=== PATIENT | male | born 1965 | race Caucasian/White ===

== ENCOUNTER 2019-02-22 10:05 | Outpatient (CLI) | payer MEDICAID, SELFPAY ==
[2019-02-22 10:51] LABS: HGB 8.8 g/dL (13.5-17.5); Mean Corp. HGB Concentration 29.3 g/dL (32.0-36.0); Mean Corpuscular Hemoglobin 25.9 pg (27.0-33.0); Mean Corpuscular Volume 88.2 fL (80-95); Mean Platelet Volume 9.9 fL (8.0-11.0); Platelet Count 487 x1000/uL (130-400); RBC Distribution Width 16.3 % (11.8-14.1); White Blood Cell Count 12.52 k/cumm (4.4-10.8)
[2019-02-22 11:35] LABS: Absolute Eosinophil Count 0.38 k/cumm (0.0-0.7); Absolute Lymphocyte Count 2.13 k/cumm (1.2-3.4); Absolute Monocyte Count 0.88 k/cumm (0.11-0.7); Absolute Neutrophil Count 9.14 k/cumm (1.2-6.7); Diff Comment Manual Differential; Hypochromasia 2+; Polychromasia Present
[2019-02-22 11:36] LABS: Anion Gap 14.9 mmol/L (3-11); BUN 44 mg/dL (7-18); CO2 24.1 mmol/L (21.0-32.0); Calcium 7.9 mg/dL (8.5-10.1); Chloride 99 mmol/L (98-107); Estimated GFR 8.59 (mL/min/1.73m2); Glucose 167 mg/dL (74-106); Potassium 4.7 mmol/L (3.5-5.1); Sodium 138 mmol/L (136-145)
[2019-02-22 11:40] LABS: CREATININE 6.73 mg/dL (0.70-1.30)
== END 2019-02-22 10:25 ==
PROVIDERS: PCP Family Medicine; Visit Provider Family Medicine
DX: I42.9 Cardiomyopathy, unspecified (principal); K85.10 Biliary acute pancreatitis without necrosis or infection; E11.65 Type 2 diabetes mellitus with hyperglycemia
CPT/HCPCS: 36415; 80048; 85025

== ENCOUNTER 2019-03-14 15:02 | Emergency (ER) | payer MEDICAID, SELFPAY ==
[2019-03-14] VITALS (29 sets, daily range): BP systolic 140–159; BP diastolic 57–93; PULSE 86–101; RESP 13–35; TEMP 36.8; O2SAT 94–100
--- NOTE | 2019-03-14 15:13 | W.ED.GENAD ---
Discharge Plan Disposition Patient Disposition: [facility] Condition: Stable Discharge Details Chief Complaint: GenMedical Clinical Impression: HCAP (healthcare-associated pneumonia) Primary Care Provider: Bruno Hyatt ED Provider: Bijan Seo Home Meds and New Rx's Prescriptions: No Action pravastatin 40 mg Tablet 40 mg PO QHS RF: 0 lisinopril 20 mg Tablet 20 mg PO QHS RF: 0 glipizide 10 mg Tablet 10 mg PO BID RF: 0 amlodipine [Norvasc] 5 mg Tablet 5 mg PO DAILY RF: 0 clonidine HCl [Catapres] 0.2 mg Tablet 0.2 mg PO QHS RF: 0 methocarbamol [Robaxin-750] 750 mg Tablet 750 mg PO QID RF: 0 Novolog U-100 Insulin aspart 100 unit/mL Solution 20 unit SUBCUT TID RF: 0 pantoprazole [Protonix] 40 mg Tablet,Delayed Release (Dr/Ec) 40 mg PO DAILY RF: 0 pregabalin [Lyrica] 50 mg Capsule 200 mg PO BID RF: 0 Levemir U-100 Insulin 100 unit/mL Solution 9 unit SUBCUT QHS RF: 0 Advair HFA 45-21 mcg/actuation Hfa Aerosol Inhaler 2 puff INHALATION BID RF: 0 Januvia 100 mg Tablet 100 mg PO DAILY RF: 0 Eliquis 2.5 mg Tablet 2.5 mg PO BID RF: 0 Medical Decision Making 53 yo male with hx of esrd on dialysis normally T//Thu but was there today due to the holidays, dvt, lbbb, dm2, htn, hld, asthma, who [place] [facility] [place] and his hospital course was complicated by a PEA arrest and found to have global cardiac hypokinesis with EF of 59% [place] [facility] [place] and had a biliary drain placed and had an ercp done as well, comes in from dialysis after he had a 1 hour session (supposed to be 4 hours) and had several episodes of loc lasting several seconds per dialysis nurse. Pt arrives hd stable though o2 saturaiton is 88% on room air and denies chronic use of o2. He has felt weak and short of breath for 2 weeks, denies chest pressure, vomit, abdominal pain. He Has diminished breath sounds at the bases and wheezing at the apices, soft abdomen without tenderness. Multiple potential etiologies will obtain lab work, blood cultures an cxr to evaluate for etiologies such as chf, pna, influenza, anemia and acs and monitor and also treat for possible asthma/copd exacerbation with steroids and neb pt remains stable, labs show wbc of 16 and xray concerning for pna, will cover for hcap. [place] [facility] [place] [facility] due to him not feeling great about the [place] [facility] [place] [facility] Spoke with Dr Granados from [facility] medicine who accepts for admission and patient is in agreement with this plan Differential Diagnosis Differential Diagnosis: acs, chf, copd, pneumonia, influenza Medical Records Medical records reviewed: Yes I reviewed the patient's medical records. Imaging Data Radiologic Study: Attestation: I personally reviewed and interpreted this imaging study as follows: Imaging: X-Ray Radiologist's impression: IMPRESSION: Opacities in the left base may represent atelectasis or pneumonia. Lab Data Lab results reviewed: Yes I reviewed the patient's lab results. ECG Data Attestation: I personally reviewed and interpreted this ECG (s) as follows: Prior ECG tracings: not available for review Interpretation: sinus rhythm, rate o 98, pr 144, lbbb HPI General Mode of arrival: EMS. Date/Time Provider Initiated Documentation: 03/14/19 15:05. Limitations to Documentation: no limitations. Information obtained by: patient. History of Present Illness 53 year old M presents to the emergency department with the chief complaint of shortness of breath, described as moderate, Patient started experiencing this week(s) (2) and it has been constant. No relieving factors improve symptom(s), No exacerbating factors reported . Patient did receive the following treatments prior to arrival, none Related Data Home Medications Medication Instructions Recorded Confirmed amlodipine [Norvasc] 5 mg PO DAILY 03/14/19 03/14/19 apixaban [Eliquis] 2.5 mg PO BID 03/14/19 03/14/19 clonidine HCl [Catapres] 0.2 mg PO QHS 03/14/19 03/14/19 fluticasone propion-salmeterol 2 puff INHALATION BID 03/14/19 03/14/19 [Advair HFA] glipizide 10 mg PO BID 03/14/19 03/14/19 insulin aspart U-100 [Novolog 20 unit SUBCUT TID 03/14/19 03/14/19 U-100 Insulin aspart] insulin detemir U-100 [Levemir 9 unit SUBCUT QHS 03/14/19 03/14/19 U-100 Insulin] lisinopril 20 mg PO QHS 03/14/19 03/14/19 methocarbamol [Robaxin-750] 750 mg PO QID 03/14/19 03/14/19 pantoprazole [Protonix] 40 mg PO DAILY 03/14/19 03/14/19 pravastatin 40 mg PO QHS 03/14/19 03/14/19 pregabalin [Lyrica] 200 mg PO BID 03/14/19 03/14/19 sitagliptin [Januvia] 100 mg PO DAILY 03/14/19 03/14/19 Allergies Allergy/AdvReac Type Severity Reaction Status Date / Time codeine Allergy Unverified 03/14/19 15:10 Penicillins Allergy Unverified 03/14/19 15:10 General Stated Complaint: GenMedical GILLIAN: 2 Review of Systems All systems reviewed & are unremarkable except as noted in HPI and below Constitutional Constitutional: Denies fever(s) Cardiovascular Cardiovascular: Denies chest pain and Denies dyspnea Respiratory Respiratory: Denies dyspnea Gastrointestinal Gastrointestinal: Denies abdominal pain, Denies nausea and Denies vomiting Musculoskeletal Musculoskeletal: Denies joint swelling Exam Const General: no acute distress Orientation: alert HENMT Head: normal to inspection Ears: external ears normal General nose exam: external nose normal Mouth: moist mucous membranes Eyes General: appearance normal, both eyes and all related structures Neck Neck: normal visual inspection Resp Effort & Inspection: other (diminished breath souds at the bases) Cardio Rate: regular rate Skin General skin exam: no rashes or lesions noted Neuro General: alert and oriented x3 Extrem General: normal to inspection Psych Mental Status: mental status grossly normal Course Vital Signs Vital signs: Vital Signs Temperature 36.8 C 03/14/19 15:02 Pulse 100 H 03/14/19 15:02 Respiratory Rate 35 H 03/14/19 15:02 Blood Pressure 157/85 H 03/14/19 15:02 Pulse Oximetry 94 L 03/14/19 15:02 Temperature 36.8 C 03/14/19 15:02 Temperature Source Skin 03/14/19 15:02 Pulse 101 H 03/14/19 15:06 Pulse 97 H 03/14/19 15:07 Respiratory Rate 25 H 03/14/19 15:07 Respiratory Effort Labored 03/14/19 15:08 Blood Pressure 157/85 H 03/14/19 15:06 Blood Pressure Mean 100 03/14/19 15:06 Blood Pressure Position Supine 03/14/19 15:02 Pulse Oximetry 96 03/14/19 15:07 Oxygen Delivery Method Nasal Cannula 03/14/19 15:02 Oxygen Flow Rate 2 03/14/19 15:02
[2019-03-14 15:21] LABS: Lactate 1.3 mmol/L (0.6-1.4)
[2019-03-14 15:23] LABS: Abs Immature Grans 0.08 k/cumm (0.0-0.09); Absolute Basophil Count 0.07 k/cumm (0.0-0.2); Absolute Lymphocyte Count 3.92 k/cumm (1.2-3.4); Basophils % 0.4; HCT 34.3 % (40.0-50.0); HGB 9.9 g/dL (13.5-17.5); Immature Grans % 0.5; Lymphocytes % 23.3; Mean Corp. HGB Concentration 28.9 g/dL (32.0-36.0); Mean Corpuscular Hemoglobin 25.3 pg (27.0-33.0); Mean Corpuscular Volume 87.7 fL (80-95); Monocytes % 7.7; Neutrophils % 66.1; Platelet Count 372 x1000/uL (130-400); RBC 3.91 m/cumm (4.50-6.00); RBC Distribution Width 17.2 % (11.8-14.1); White Blood Cell Count 16.84 k/cumm (4.4-10.8)
[2019-03-14 15:24] LABS: Absolute Eosinophil Count 0.34 k/cumm (0.0-0.7); Absolute Neutrophil Count 11.13 k/cumm (1.2-6.7)
[2019-03-14 15:38] LABS: INR 1.3 (0.9-1.1); Prothrombin Time 12.9 sec (9.3-11.0)
[2019-03-14 15:43] LABS: ALT 13 U/L (16-63); AST 16 U/L (15-37); Albumin 2.2 g/dL (3.4-5.0); Alkaline Phosphatase 561 U/L (46-116); Anion Gap 9.1 mmol/L (3-11); BUN 33 mg/dL (7-18); Bilirubin, Total 0.5 mg/dL (0.2-1.0); CO2 31.9 mmol/L (21.0-32.0); Calcium 7.9 mg/dL (8.5-10.1); Chloride 102 mmol/L (98-107); Estimated GFR 12.82 (mL/min/1.73m2); Glucose 244 mg/dL (74-106); Lipase 270 U/L (73-393); Sodium 143 mmol/L (136-145); Total Protein 7.9 g/dL (6.4-8.2)
[2019-03-14 15:44] LABS: Troponin I < 0.05 ng/Ml (<0.06)
[2019-03-14 15:47] LABS: CREATININE 4.76 mg/dL (0.70-1.30)
--- NOTE | 2019-03-14 15:58 | DI.RAD_ITS ---
EXAM: XR CHEST 2V PA LATERAL CLINICAL HISTORY: shortness of breath COMPARISON: No exams were available for comparison FINDINGS: AP and lateral views were obtained. There is a left subclavian double-lumen catheter, the tip of whi ch lies near junction of superior vena cava and right atrium. Heart may be mildly enlarged. Diaphra gm appears mildly elevated on the left. There is bibasilar lower lobe atelectasis, patchy consolidat ion not excluded in the lung bases. There may be a small pleural effusion. IMPRESSION: Basilar atelectasis and/or pneumonia, appropriate follow-up studies requested.
[2019-03-14] MEDS: Albuterol/Ipratropium 3 ML UPD VIAL UPD (16:07)
[2019-03-14] MEDS: methylPREDNISolone SUCC 125 MG VIAL IVP (16:08)
--- NOTE | 2019-03-14 16:21 | DI.VRAD_ITS ---
PROCEDURE INFORMATION: Exam: XR Chest, 2 Views Exam date and time: 03/14/2019 4:02 PM Age: 53 years old Clinical indication: Shortness of breath TECHNIQUE: Imaging protocol: XR of the chest Views: 2 views. COMPARISON: No relevant prior studies available. FINDINGS: Tubes, catheters and devices: Double-lumen catheter terminates in the right atrium Pigtail catheter in the anterior abdomen Lungs: Opacities in the left base may represent atelectasis or pneumonia. Pleural space: Unremarkable. No pleural effusion. No pneumothorax. Heart/Mediastinum: Unremarkable. No cardiomegaly. Diaphragm: Elevated left hemidiaphragm Bones/joints: Degenerative changes in the thoracic spine Other findings: Overlying EKG wires IMPRESSION: Opacities in the left base may represent atelectasis or pneumonia. Dictated and Authenticated by: Atilio Cox MD. Ordering:TERRY Thakkar MD
[2019-03-14] MEDS: VANCOMYCIN 1,000 MG in Normal Saline 250 ML 166.6666 MG IVPB (16:45)
[2019-03-14] MEDS: CEFEPIME 1 GM in Normal Saline 50 ML IVPB (16:47)
[2019-03-14] MEDS: Normal Saline Flush 10 ML SYR IVP (16:48)
== END 2019-03-14 18:31 ==
PROVIDERS: Emergency Provider Emergency Medicine; PCP Family Medicine
DX: J18.9 Pneumonia, unspecified organism (principal); Y95 Nosocomial condition; R09.02 Hypoxemia; N18.6 End stage renal disease; Z99.2 Dependence on renal dialysis; E11.22 Type 2 diabetes mellitus with diabetic chronic kidney disease; I12.0 Hypertensive chronic kidney disease with stage 5 chronic kidney disease or end stage renal disease
CPT/HCPCS: 36415; 80053; 83690; 87040; 87449; 93005; 94640; 96365; 96366; 96368; 96375; 99285; 71046; 83605; 84484; 85025; 85610; 85730; 93010; J2930; J7620